=== PATIENT | male | born 1965 | race Hispanic/Latino ===

== ENCOUNTER → 2017-10-16 | Outpatient (CLI) | payer OTHER ==
[~2017-10-16] MED LIST: ATORVASTATIN CA20 MG PO; BACLOFEN10 MG PO; BACTRIM DS TAB1 EACH PO; CEFUROXIME250 MG PO; DESONIDE15 G1 TOP; DOCUSATE SODIU100 MG PO; GABAPENTIN300 MG PO; HYDROCODON-ACE1 EAC9 PO; HYDROCODONE PO; IPRATROPIU0.2 MG/1 M NEB; LISINOPRIL5 MG PO; LOVENOX60 MG/0.6 SC; MEROPENEM500 MG IV; METFORMIN HCL500 MG PO; METFORMIN PO; MUPIROCIN22 GM TOP; NOVOLOG100 UNITS1; NYSTATIN15 G2 TP; PANTOPRAZOLE SO40 MG PO; POLYETHYLENE GL17 GM PO; TANZEUM SC; TYLENOL WITH C1 EAC1 PO; VANCOMYCIN1 GM/250 M IV; VITAMIN B-121000 MC2; ZYVOX600 MG PO; fluticasone
--- NOTE | 2017-10-16 14:09 | Diagnostic Imaging Report ---
PROCEDURE:US RETROPERITONEAL ( KIDNEY ). COMPARISON:Abdominal ultrasound 10/01/2015. INDICATIONS:HYDRONEPHROSIS/HEMATURIA TECHNIQUE: Conway-scale and color sonographic images of the bilateral kidneys and bladder where obtained in transverse and longitudinal planes. FINDINGS: RIGHT KIDNEY: 10.6 cm in length, cortical thickness 1.8 cm. Cysts: None Solid masses: None Stones: None Hydronephrosis: None Echogenicity: Normal renal cortical echogenicity. LEFT KIDNEY: 11.7 cm in length, cortical thickness 1.5 cm. Cysts: None Solid masses: None Stones: None Hydronephrosis: None Echogenicity: Normal renal cortical echogenicity. Bladder: Collapsed around a balloon retention catheter, with mildly thickened wall. Prostate: 3 x 2.1 x 3.6 cm, estimated volume 12 cc CONCLUSION: Unremarkable sonographic appearance of the kidneys. Urinary bladder collapsed around a balloon retention catheter. Dictated by: Tanner Hameed M.D. on 10/16/2017 at 14:13 Electronically approved by: Tanner Hameed M.D. on 10/16/2017 at 14:13
== END ==
LOC: US 13:03
PROVIDERS: ATTEND Urology
DX: R31.21 Asymptomatic microscopic hematuria (principal); N13.30 Unspecified hydronephrosis
CPT/HCPCS: 76770

== ENCOUNTER 2017-12-05 21:20 | Emergency (ER) | payer BC, OTHER ==
[~2017-12-05] VITALS: Ht 177.8 cm; Wt 93.9 kg
[2017-12-05] MEDS ORDERED: SODIUM CHLORIDE 0.9% 1000ML 1,000 ML IV STA ×2 (21:29→23:19)
[2017-12-05 22:15] LABS: BASOPHILS # (AUTO) 0.1 (0.0-0.1); BASOPHILS % 0.2 % (0.0-1.0); HEMATOCRIT 22.8 % (38.2-49.6); HEMOGLOBIN 7.7 g/dL (14.0-18.0); LYMPHOCYTES # (AUTO) 1.7 (1.0-3.2); LYMPHOCYTES % 4.1 % (18.0-39.1); MEAN CORPUSCULAR HEMOGLOBIN 27.9 pg (28-32); MEAN CORPUSCULAR HGB CONC 33.8 g/dL (31-35); MEAN CORPUSCULAR VOLUME 82.6 fL (81-99); MONOCYTES # (AUTO) 2.5 (0.2-0.8); MONOCYTES % 6.2 % (4.4-11.3); NEUTROPHILS # (AUTO) 35.8 (2.1-6.9); NEUTROPHILS % 87.7 % (38.7-80.0); PLATELET COUNT 1011 x10e3/uL (140-360); RED BLOOD COUNT 2.76 x10e6/uL (4.3-5.7); RED CELL DISTRIBUTION WIDTH 15.6 % (11.7-14.4)
[2017-12-05 22:25] LABS: INR 1.5
[2017-12-05 22:26] LABS: PARTIAL THROMBOPLASTIN TIME 56.4 seconds (23.8-35.5)
[2017-12-05] MEDS ORDERED: SODIUM CHLORIDE 0.9% 1000ML 1,000 ML IV SCH ×2 (22:30→23:45)
[2017-12-05 22:31] LABS: CLARITY,URINE CLEAR (CLEAR); COLOR,URINE YELLOW (YELLOW)
[2017-12-05 22:32] LABS: BILIRUBIN,URINE NEGATIVE (NEGATIVE); KETONES,URINE NEGATIVE (NEGATIVE); LEUKOCYTE ESTERASE ,URINE 2+ (NEGATIVE); NITRITE,URINE NEGATIVE (NEGATIVE); PROTEIN,URINE DIPSTICK 2+ (NEGATIVE); URINE UROBILINOGEN 0.2 mg/dL (0.2 - 1)
--- NOTE | 2017-12-05 22:32 | Diagnostic Imaging Report ---
EXAMINATION: CHEST SINGLE (PORTABLE) INDICATION: Sepsis. COMPARISON: 01/01/2017 FINDINGS: TUBES and LINES: Interval removal of right PICC line. LUNGS: Lungs are not well inflated. There are bibasilar atelectasis. There is no evidence of pneumonia or pulmonary edema. PLEURA: No pleural effusion or pneumothorax. HEART AND MEDIASTINUM: The cardiomediastinal silhouette is unremarkable. BONES AND SOFT TISSUES: No acute osseous lesion. Soft tissues are unremarkable. UPPER ABDOMEN: No free air under the diaphragm. IMPRESSION: No acute thoracic abnormality. Signed by: Dr. Tommie Olivier M.D. on 12/05/2017 10:29 PM
[2017-12-05 22:35] LABS: ALANINE AMINOTRANSFERASE 54 IU/L (0-55); ALBUMIN 1.7 g/dL (3.5-5.0); ALBUMIN/GLOBULIN RATIO 0.3 (0.8-2.0); ALKALINE PHOSPHATASE 334 IU/L (40-150); ANION GAP 18.8 mmol/L (8-16); BLOOD UREA NITROGEN 19 mg/dL (7-26); BUN/CREATININE RATIO 16 (6-25); CARBON DIOXIDE 18 mmol/L (22-29); CHLORIDE 96 mmol/L (98-107); CREATINE KINASE 31 IU/L (30-200); CREATININE, SERUM 1.18 mg/dL (0.72-1.25); EST GLOMERULAR FILTRATION RATE > 60 ML/MIN (60-); GLUCOSE 187 mg/dL (74-118); MAGNESIUM 1.3 MG/DL (1.3-2.1); POTASSIUM 3.8 mmol/L (3.5-5.1); SODIUM 129 mmol/L (136-145)
[2017-12-05 22:52] LABS: B-TYPE NATRIURETIC PEPTIDE2 42.2 pg/mL (0-100)
[2017-12-05 22:55] LABS: THYROID STIMULATING HORMONE 1.107 uIU/mL (0.350-4.940)
[2017-12-05] MEDS ORDERED: VANCOMYCIN 1GM/NS 250 ML 250 ML IV SCH (23:00)
[2017-12-05] MEDS ORDERED: MEROPENEM 1GRAM 1 GM in SODIUM CHLORIDE 0.9% 100 ML 100 ML IV SCH (23:00)
[2017-12-05 23:24] LABS: AMORPHOUS SEDIMENT,URINE MANY (FEW); BACTERIA,URINE MANY /HPF; EPITHELIAL CELLS,URINE MODERATE /LPF
[2017-12-05] MEDS ORDERED: MEROPENEM 1 GM VIAL ONE (23:26)
[2017-12-06] MEDS ORDERED: PIPER-TAZ 3.375 GM 50 ML IV SCH
[2017-12-06] MEDS ORDERED: SODIUM CHLORIDE 0.9% 500ML 500 ML IV ONE (01:45)
[2017-12-06] MEDS ORDERED: NOREPINEPHRINE INJ 4MG/4ML 8 MG in DEXTROSE 5% 250ML 250 ML IV STA (01:56)
[2017-12-06] MEDS ORDERED: NOREPINEPHRINE 8 MG/D5W 250 ML 250 ML ONE (01:58)
== END 2017-12-06 02:25 | disposition other institution (70) ==
LOC: ER 21:20
DX: R50.9 Fever, unspecified (principal); R65.21 Severe sepsis with septic shock; G37.3 Acute transverse myelitis in demyelinating disease of central nervous system; N30.91 Cystitis, unspecified with hematuria
CPT/HCPCS: 36415; 71045; 80053; 81001; 82550; 82553; 83605; 83735; 83880; 84443; 84484; 85025; 85610; 85730; 86850; 86870; 86880; 86900; 86905; 87040; 87071 ×2; 87086; 87186; 87205; 93005; 99001; 99285; J2185; J2543; J3370; J7030 ×2

== ENCOUNTER → 2018-03-17 | Outpatient (CLI) | payer OTHER | LOC: DX 15:57 | PROVIDERS: ATTEND Internal Medicine | DX: M86.19 Other acute osteomyelitis, multiple sites (principal) ==

== ENCOUNTER → 2019-06-23 | Day surgery (SDC) | payer OTHER ==
[2019-06-22 14:45] LABS: ANION GAP 12.2 mmol/L (8-16); BLOOD UREA NITROGEN 14 mg/dL (7-26); BUN/CREATININE RATIO 21 (6-25); CALCIUM 8.9 mg/dL (8.4-10.2); CARBON DIOXIDE 28 mmol/L (22-29); CHLORIDE 105 mmol/L (98-107); CREATININE, SERUM 0.68 mg/dL (0.72-1.25); EST GLOMERULAR FILTRATION RATE > 60 ML/MIN (60-); GLUCOSE 78 mg/dL (74-118); POTASSIUM 4.2 mmol/L (3.5-5.1); SODIUM 141 mmol/L (136-145)
[~2019-06-23] MED LIST changes: +BACITRACIN ZINC 15 GM OINT ONE; +CEFAZOLIN SOD 1 GM/NS 50ML 50 ML IV ONE; +CYMBALTA30 MG PO; +DEXAMETHASONE SOD PHOS INJ 4 MG/ML VIAL ONE; +FENTANYL CITRATE/PF 100MCG/2 ML INJ ONE; +FERROUS SULFAT325 MG PO; +GENTAMICIN 80MG/NS 100 ML 200 ML IV ONE; +IOPAMIDOL 300MG/ML 50ML INFUS..BTL IV ONE; +LIDOCAINE HCL 2% LOCAL INJ 5 ML SDV VIAL INJ ONE; +MIDAZOLAM HCL 2 MG/2 ML VIAL ONE; +ONDANSETRON HCL INJ 2MG/ML 2ML 2 MG/ML VIAL ONE; +PIOGLITAZONE HC45 MG PO; +PROPOFOL IV EMULSION 10 MG/ML 20 ML VIAL ONE; +SEVOFLURANE INHAL SOLN 250 ML PEN BTL ONE; +TRULICITY1.5 MG/0.5 SC
--- OUTSIDE RECORDS SUMMARY | 2019-06-23 08:24 | XMS REPORT | Summary of Care ---
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 (HCV) SCREEN 1965 DTaP,Tdap,and Td Vaccines 11/20/1982 (1 - Tdap) COLONOSCOPY 11/20/2013 Zoster Recombinant 11/20/2013 Vaccine (SHINGRIX) (1 of 2) INFLUENZA VACCINE 12/19/2018 PNEUMOCOCCAL 0-64 YEARS Aged Out No longer eligible based COMBINED SERIES on patient's age to complete this topic documented as of this encounter Results Not on filedocumented in this encounter Visit Diagnoses Diagnosis Chronic osteomyelitis involving pelvic region and thigh, unspecified laterality - Primary Sacral decubitus ulcer, stage IV Pressure ulcer, lower back Decubitus ulcer, infected, stage IV documented in this encounter Insurance Type Payer Benefit Subscriber ID Effective Phone Address Plan / Dates Group HMO/PPO/POS [facility] [id number] 2018-P HEALTHCARE resent PPO documented as of this encounter
--- OUTSIDE RECORDS SUMMARY | 2019-06-23 08:24 | XMS REPORT | Summary of Care ---
Author Author [facility] - Health Organization [facility] - Health Address Unknown Phone Unavailable Care Team Providers Care Bench Press Operator Name Role Phone Usman Santillan PCP Reason for Visit * Reason Comments Follow-up Upcoming availability of HBO2 treatment slot Encounter Details Care Team Description Date Type Department Amari Vanegas MD [address], [facility] [place] [address] [phone] Follow-up (Upcoming availability of HBO2 treatment slot) 11/23/2018 [facility]phone [facility] [address] [facility] [place] [address] Allergies No Known Allergiesdocumented as of this encounter (statuses as of 11/23/2018) Medications End Date Status Medication Sig Dispensed [...] (eight) specified site, hours. Cellulitis of perineum Active nystatin 100,000 Apply to 15 g 1 unit/gram area(s) 2 9 powderIndications: Open (two) times wound of scrotum and daily. 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) documented as of this encounter Social [...] of this encounter Last Filed Vital Signs Not on filedocumented in this encounter Plan of Treatment Health Maintenance Due Date Last Done Comments HEPATITIS C (HCV) SCREEN 1965 DTaP,Tdap,and Td Vaccines 11/20/1982 (1 - Tdap) COLONOSCOPY 11/20/2013 Zoster Recombinant 11/20/2013 Vaccine (SHINGRIX) (1 of 2) INFLUENZA VACCINE 12/19/2018 PNEUMOCOCCAL 0-64 YEARS Aged Out No longer eligible based COMBINED SERIES on patient's age to complete this topic documented as of this encounter Results Not on filedocumented in this encounter Insurance Type Payer Benefit Subscriber ID Effective Phone Address Plan / Dates Group HMO/PPO/POS [facility] [id number] 2018-P HEALTHCARE resent PPO documented as of this encounter
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
[2019-06-23 12:00] VITALS: BP 136/74
--- NOTE | 2019-06-23 12:37 | Operative Report ---
DATE OF PROCEDURE: 06/23/2019 SURGEON: Ingrid Mckeon MD PREOPERATIVE DIAGNOSES: 1. Paraplegia. 2. Necrotic area of the penis. 3. Complete obstruction of the urethra. 4. Edema of the penis. POSTOPERATIVE DIAGNOSES: 1. Paraplegia. 2. Necrotic area of the penis. 3. Complete obstruction of the urethra. 4. Edema of the penis. OPERATIONS PERFORMED: 1. Cystogram under fluoroscopic control. 2. Interpretation of x-ray, radiologist not present. 3. Excision of skin the base of the penis and reconstruction. 4. Change of SP tube. 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 ANESTHESIA: General. CLINICAL INDICATION NOTE: This is a 53-year-old patient, who has a long suprapubic tube treatment. He is paraplegic for years. He has been treated by general surgeon for suprapubic abscess area that also extended to the penis. The patient does have significant edema of the penis with lesion at the base and near the top of the penis. The patient does have a suprapubic tube in place, which is changed periodically. He was brought for reassessment of the genital problem. DESCRIPTION OF PROCEDURE AND FINDING: After the appropriate level of anesthesia was achieved, the patient was placed in lithotomy position, prepped and draped in a sterile fashion. Distal urethra inspected appeared to be completely blocked. The penis was edematous, significantly deformed with lesion at the base of the penis as well as in the suprapubic area, which appeared to be a small irregular necrotic area. Following this, the suprapubic tube access to the bladder was done initially with the rigid scope and then with a flexible scope. No lesions were identified in the bladder. The flexible scope was inserted into the prostatic urethra and with initial distance, it was obvious that the urethra was completely blocked. Following this, suprapubic tube 24-Nicaraguan 5 mL was placed and then cystogram was done. Cystogram revealed relatively smooth wall bladder without reflux. Following this, skin at the base dorsal part of the penis was excised. The tissue was sent to pathology. Any visible bleeding points were carefully coagulated and the wound was closed using 2-0 interrupted chromic catgut sutures. Dressing was applied and he was transferred in satisfactory condition to recovery room. It seems the next step in management should be removal of the penis, which is completed the form nonfunctional, edematous, and infected. MD QAMAR Barnett/BILLIE /[id number]
== END | disposition home or self-care (01) ==
LOC: OR 08:15
PROVIDERS: ATTEND Urology
DX: G82.20 Paraplegia, unspecified (principal); N36.8 Other specified disorders of urethra; N48.89 Other specified disorders of penis; E78.5 Hyperlipidemia, unspecified; E11.9 Type 2 diabetes mellitus without complications; Z43.5 Encounter for attention to cystostomy; Z79.84 Long term (current) use of oral hypoglycemic drugs
CPT/HCPCS: 11422; 36415 ×2; 51600; 74430; 80048; 82948; 88304; 93005; C1758; J0690; J1100; J1580; J2001; J2250; J2405; J2704; J3010; Q9967

== ENCOUNTER 2019-08-18 07:44 | Emergency (ER) | payer BC, OTHER ==
[~2019-08-18] VITALS: Ht 177.8 cm; Wt 93.9 kg
[~2019-08-18 07:44] MED LIST changes: -B&O 60MG R/S 60 MG SUPP PR ONE; -CEFAZOLIN SOD 1 GM/NS 50ML 100 ML IV ONE; -FENTANYL CITRATE/PF 100MCG/2 ML INJ ONE; -HYDROGEN PEROXIDE 120 ML BTL ONE; -IOPAMIDOL 300MG/ML 50ML INFUS..BTL IV ONE; -LIDOCAINE HCL 2% LOCAL INJ 5 ML SDV VIAL INJ ONE; -MIDAZOLAM HCL 2 MG/2 ML VIAL ONE; -PROPOFOL IV EMULSION 10 MG/ML 20 ML VIAL ONE; -SEVOFLURANE INHAL SOLN 250 ML PEN BTL ONE; -SODIUM CHLORIDE 0.9% IV ONE; -TOBRAMYCIN IV ONE
[2019-08-18] MEDS ORDERED: DIAZEPAM 2 MG TAB PO ONE (08:00)
[2019-08-18] MEDS ORDERED: KETOROLAC TROMETHAMINE 60 MG/2 ML VIAL IM ONE (08:00)
[2019-08-18] MEDS ORDERED: METHYLPREDNISOLONE SOD SUCC 125 MG/2ML VIAL IM ONE (08:00)
--- NOTE | 2019-08-18 08:15 | NUR ---
PATIENT TAKEN TO PRE-OP FOR PLANNED PROCEDURE AT THIS TIME
== END 2019-08-18 08:15 | disposition short-term general hospital (02) ==
LOC: ER 07:44
DX: N50.82 Scrotal pain (principal)
CPT/HCPCS: 99282

== ENCOUNTER → 2019-08-18 | Day surgery (SDC) | payer OTHER ==
[2019-08-15 13:41] LABS: ANION GAP 13.1 mmol/L (8-16); BLOOD UREA NITROGEN 18 mg/dL (7-26); BUN/CREATININE RATIO 25 (6-25); CALCIUM 9.3 mg/dL (8.4-10.2); CARBON DIOXIDE 26 mmol/L (22-29); CHLORIDE 105 mmol/L (98-107); CREATININE, SERUM 0.71 mg/dL (0.72-1.25); EST GLOMERULAR FILTRATION RATE > 60 ML/MIN (60-); GLUCOSE 106 mg/dL (74-118); POTASSIUM 4.1 mmol/L (3.5-5.1); SODIUM 140 mmol/L (136-145)
[~2019-08-18] MED LIST changes: +B&O 60MG R/S 60 MG SUPP PR ONE; -BACITRACIN ZINC 15 GM OINT ONE; +CEFAZOLIN SOD 1 GM/NS 50ML 100 ML IV ONE; -CEFAZOLIN SOD 1 GM/NS 50ML 50 ML IV ONE; -DEXAMETHASONE SOD PHOS INJ 4 MG/ML VIAL ONE; -GENTAMICIN 80MG/NS 100 ML 200 ML IV ONE; +HYDROGEN PEROXIDE 120 ML BTL ONE; -ONDANSETRON HCL INJ 2MG/ML 2ML 2 MG/ML VIAL ONE; +SODIUM CHLORIDE 0.9% IV ONE; +TOBRAMYCIN IV ONE
[2019-08-18 13:15] VITALS: BP 128/64
--- NOTE | 2019-08-18 13:48 | Diagnostic Imaging Report ---
OR Fluoroscopy: IMPRESSION: Fluoroscopy service provided in the OR. Interpretation not requested. Signed by: Earl Orozco MD on 08/18/2019 1:45 PM
--- NOTE | 2019-08-18 20:37 | Operative Report ---
DATE OF PROCEDURE: 08/18/2019 SURGEON: Ingrid Mckeon MD SERVICE: Urology. PREOPERATIVE DIAGNOSES: 1. Necrotic penis. 2. Necrotic area in penile infrapubic area. 3. Chronic SP tube. 4. Paraplegia. 5. Urinary tract infection. 6. Ureteral stricture. OPERATIONS PERFORMED: 1. Cystogram under fluoroscopic control. 2. Partial penectomy. 3. Excision of the necrotic tissue from the penile base and upper part of the scrotum and inferior part of the symphysis pubis. 4. Reconstruction of the skin with some flaps in appearance and placement of a Letty drain quarter-inch to be brought for separate incision. HAT CUTTER: None. ANESTHESIA: General. CLINICAL INDICATION NOTE: This is a 53-year-old patient and he has a chronic SP tube in place. He has been paraplegic for years. He did have necrosis of the area in the infrapubic and suprapubic area that were drained by general surgeon few months ago. The penis appeared to be a necrotic and an area of necrosis are present in the infrapubic area. The patient was brought for penectomy as well as excision of any necrotic tissue and reconstruction. The procedure was discussed with the patient ahead of time. He is aware about the benefit and complication of the procedure. Of note, that the patient was noticing significant bleeding this morning and came to the hospital through the emergency room. DESCRIPTION OF THE PROCEDURE AND FINDINGS: The patient was placed in lithotomy position after achieving proper level of anesthesia. A cystogram was then done on the fluoroscopic control. The suprapubic tube was changed. 24-Salvadorean 5 mL Grider catheter was inserted. Following this, a penectomy was done. The patient does have a total occlusion of the urethra which does not appear to be functional anyway. The tissue was quite necrotic at the base. Any visible necrotic tissue was excised to fresh, any visible points were coagulated or ligated. Following this, an additional unhealthy skin was excised and reconstruction with some flaps of the area under the symphysis pubis and in the penile base that was done using initially 3-0 chromic catgut as well as Vicryl 2-0 and the skin was approximated with 2-0 chromic vertical mattresses. A Letty drain quarter-inch was placed in the wound and brought through a separate stab incision and fixed with a nylon stitch. Estimated blood loss during the procedure is negligible. The patient was transferred in satisfactory condition to recovery room. He will be followed in two weeks in the office for postoperative care. MD QAMAR Barnett/BILLIE /[id number]
== END | disposition home or self-care (01) ==
LOC: OR 11:30
PROVIDERS: ATTEND Urology
DX: N48.89 Other specified disorders of penis (principal); G82.20 Paraplegia, unspecified; N39.0 Urinary tract infection, site not specified; N13.5 Crossing vessel and stricture of ureter without hydronephrosis; Z93.50 Unspecified cystostomy status; N35.919 Unspecified urethral stricture, male, unspecified site; K85.90 Acute pancreatitis without necrosis or infection, unspecified; E11.9 Type 2 diabetes mellitus without complications; K21.9 Gastro-esophageal reflux disease without esophagitis; Z01.812 Encounter for preprocedural laboratory examination; Z11.59 Encounter for screening for other viral diseases; Z79.84 Long term (current) use of oral hypoglycemic drugs
CPT/HCPCS: 36415 ×2; 51600; 51705; 54120; 74430; 80048; 82948; 87635; 88304; J0690; J2001; J2250; J2704; J3010; J3260; Q9967; 88305; 88307